=== PATIENT | female | born 1995 | race African-American/Black ===

== ENCOUNTER 2021-08-27 17:38 | Emergency (ER) | payer OTHER ==
[~2021-08-27] VITALS: Ht 167.6 cm; Wt 66.0 kg
[2021-08-27 17:41] VITALS: BP 132/62
== END 2021-08-27 17:50 ==
LOC: ER 17:38
DX: Z02.89 Encounter for other administrative examinations (principal); J45.901 Unspecified asthma with (acute) exacerbation
CPT/HCPCS: 99283